=== PATIENT | male | born 1990 | race Caucasian/White ===

== ENCOUNTER 2018-09-14 12:50 | Emergency (ER) | payer OTHER ==
[2018-09-14] MEDS ORDERED: ASPIRIN 81 MG CHEWABLE TAB ONE (13:10)
[2018-09-14] MEDS ORDERED: ASPIRIN 81 MG CHEWABLE TAB PO ONE (13:11)
--- NOTE | 2018-09-14 14:01 | EDPHY ---
H & P Time Seen by Provider: 09/14/18 13:16 HPI/ROS: CHIEF COMPLAINT: Palpitations and near syncope History by patient HISTORY OF PRESENT ILLNESS: 27-year-old man presents complaining of multiple episodes of feeling a "hard pounding in my heart and then feeling like blood rushing to my head and like I might pass out". This is sometimes associated with some chest tightness, some twitching in his lips and some tingling in his fingers and toes. He also has some intermittent jaw pain. Symptoms are nonexertional attend occur more often while he is at work. He works out regularly at the gym and he has never had symptoms while he was working out. Episodes have been ongoing for the past several months but he decided to seek medical attention today because his episode today seemed more severe. Also he talked to his sister who is a physical therapist who told him all of these might be related to his heart. He has no underlying medical problems. He does not smoke. He does not know what his cholesterol is. His father has high blood pressure. His grandfather had an ID at age 53. There is no family history of sudden cardiac . He denies use of cocaine, methamphetamines or marijuana. 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 REVIEW OF SYSTEMS: As in HPI, and all other systems reviewed and are negative Source: Patient - Physical Exam Exam: General Appearance: Alert, comfortable, well appearing Head: normocephalic, atraumatic Eyes: Pupils equal and round, reactive to light, no pallor or injection. Mouth: Mucous membranes moist. Oropharynx clear Neck: No bony tenderness, full range of motion Respiratory: Normal, effort, lungs are clear to auscultation. No wheezes, rales or rhonchi. Cardiovascular: Regular rate and rhythm. S1, S2, no murmurs, gallops or rubs appreciated Gastrointestinal: Abdomen is soft and nontender, no masses, bowel sounds normal. Back: No CVA tenderness, no bony tenderness Neurological: Awake, alert and oriented x 3, cranial nerves 2-12 intact, no pronator drift, normal gait, Skin: Warm and dry, no rashes. Musculoskeletal: No deformities or tenderness. Extremities: full range of motion, no edema, DP2+ bilat Psychiatric: Patient has normal affect, there is no agitation. Constitutional: Initial Vital Signs Heart Rate 60 09/14/18 14:26 Respiratory Rate 14 09/14/18 14:26 Blood Pressure 108/60 09/14/18 14:26 O2 Sat (%) 97 09/14/18 14:26 O2 Delivery Mode Room Air Medical Decision Making - Diagnostics EKG Interpretation: Normal sinus rhythm at a rate of 79 with normal axis, normal intervals no evidence of pericarditis, WPW or Brugada syndrome. Impression normal EKG Imaging Results: Imaging Impressions Chest X-Ray 09/14/18 13:32 Impression: Nothing acute is seen. If needed, designated rib views are suggested. No obvious rib fracture on today's x-ray. ED Course/Re-evaluation: 27-year-old man presents with episodes of palpitations and near-syncope and unremarkable exam and normal EKG. He remained in normal sinus rhythm on the monitor throughout his ER stay. Labs including electrolytes were all within normal limits. There is no evidence of anemia. Chest x-ray showed nothing acute. Troponin was negative. Cause of his symptoms remains unclear. Patient was given reassurance. He was referred for primary care for potential outpatient Holter monitoring. I discussed this plan with the patient who understands. - Data Points Laboratory Results: 09/14/18 09/14/18 13:24 13:23 POC Sodium 141 mEq/L mEq/L (135-145) POC Potassium 3.9 mEq/L mEq/L (3.3-5.0) POC Chloride 106.0 mEq/L mEq/L (97-110) POC Total CO2 27 mEq/L mEq/L (22-31) POC BUN 11 mg/dL mg/dL (7-23) POC Creatinine 1.3 mg/dL mg/dL (0.7-1.3) POC Glucose 89 mg/dL mg/dL (70-100) POC Calcium 9.8 mg/dL mg/dL (8.5-10.4) POC Troponin I 0.00 ng/mL ng/mL (0.00-0.08) Medications Given: Discontinued Medications Aspirin (Aspirin) 324 mg PO EDNOW ONE Stop: 09/14/18 13:12 Last Admin: 09/14/18 13:12 Dose: 324 mg Point of Care Test Results: CBC CBC Collection Date 09/14/18 CBC Collection Time 13:06 WBC 4.33 RBC 5.31 HGB 16.3 HCT 45.5 PLT 173 Neut # 2.4 Neut 55.5 LYMPH # 1.39 LYMPH 32.1 MCV 85.7 Chemistry 09/14/18 09/14/18 13:24 13:23 POC Sodium 141 mEq/L mEq/L (135-145) POC Potassium 3.9 mEq/L mEq/L (3.3-5.0) POC Chloride 106.0 mEq/L mEq/L (97-110) POC Total CO2 27 mEq/L mEq/L (22-31) POC BUN 11 mg/dL mg/dL (7-23) POC Creatinine 1.3 mg/dL mg/dL (0.7-1.3) POC Glucose 89 mg/dL mg/dL (70-100) POC Calcium 9.8 mg/dL mg/dL (8.5-10.4) POC Troponin I 0.00 ng/mL ng/mL (0.00-0.08) Departure - Departure Disposition: Home, Routine, Self-Care Clinical Impression: Palpitations, Near syncope Condition: Good Instructions: Heart Palpitations (ED), Near Syncope (ED) Additional Instructions: You were seen by Dr. Jennie Gray today. Today your EKG, chest x-ray and blood work was all normal. The cause of her symptoms is unclear. Please follow-up with Dr. Dallas to establish primary care and discuss possible outpatient cardiac monitoring. Return for any worsening or new concerns. Referrals: Amy Dallas MD [Medical Doctor] - As per Instructions
[2018-09-14 14:27] VITALS: BP 108/60
== END 2018-09-14 14:26 | disposition home or self-care (01) ==
LOC: CED 12:50
DX: R55 Syncope and collapse (principal); R00.2 Palpitations
CPT/HCPCS: 71046-PO; 80048-ER; 84484-ER; 85025-QW-ER; 99285-ER